=== PATIENT | male | born 1995 | race Asian ===

== ENCOUNTER 2019-06-13 17:54 | Inpatient (IN) | payer SELFPAY ==
[2019-06-13] MEDS ORDERED: Sodium Chloride 0.9% 1,000 ML IV SCH (19:30)
[2019-06-13] MEDS ORDERED: Potassium Chloride 20 MEQ TAB PO SCH (20:30)
[2019-06-13] MEDS ORDERED: Potassium Chloride 20 MEQ in Premix Bag 1 BAG IVPB SCH (20:45)
[2019-06-13] MEDS: NS 0.9% w/ 20 MEQ KCL 1,000 ML IV SCH (21:25)
--- NOTE | 2019-06-13 21:58 | PDOC.EVN ---
Event Note - Event Note Event Note: H&P [id number]
[2019-06-13] MEDS: Ibuprofen 200 MG TAB PO PRN (22:22)
[2019-06-13] MEDS: Ondansetron PF 4 MG/2 ML Vial IVP PRN (22:23)
[2019-06-13 22:55] LABS: HBCM Index 0.07 S/CO (0-0.79); HBSAg Index 0.17 S/CO (0-0.99); Hep A IgM AB Non-Reactive (NonReactive); Hep B Surf Ag Non-Reactive S/CO (NonReactive); Hep C IgG Ab Non-Reactive (NonReactive); Hep C Index 0.07 S/CO (0-0.79); Hepatitis B Core IgM Abs Non-Reactive (NonReactive)
--- NOTE | 2019-06-14 03:50 | HP ---
CHIEF COMPLAINT: Fever. HISTORY OF PRESENT ILLNESS: Mr. Low is a 23-year-old male with no significant past medical history, presents to outside emergency room with fever for the last week. The patient recently traveled to [facility] and came two weeks ago. According to him, his roommates started having fever, body aches, and upper respiratory tract infection symptoms, all of them improved. After a day or two later, he started having fever as high as 102/103. Workup in the emergency room, the patient was found to have elevated LFTs with ALT 830, AST 766, GGT 166. Also, he was found to be hypokalemic with a potassium of 2.8, hyponatremic with a sodium of 128, the patient appeared to be dehydrated. PAST MEDICAL HISTORY: No significant past medical history. PAST SURGICAL HISTORY: Hernia repair. FAMILY HISTORY: Reviewed and noncontributory. SOCIAL HISTORY: As history of present illness, his roommates got fever and sick before he started feeling sick. He denies smoking, alcohol drinking, or drug abuse. HOME MEDICATIONS: Please see home medication reconciliation form for updated medications. ALLERGIES: NO KNOWN ALLERGIES. REVIEW OF SYSTEMS: Review of 14 systems is negative except what is mentioned in the history of present illness. PHYSICAL EXAMINATION: GENERAL: The patient is awake, alert, sick/ill-looking. HEAD AND NECK: Normocephalic, atraumatic. Mucous membranes dry. HEART: S1, S2. Regular tachycardic. ABDOMEN: Soft, nontender. Bowel sounds present. NEUROLOGIC: Awake, alert, oriented x3. PSYCH: Normal mood. EXTREMITIES: No clubbing or cyanosis. SKIN: No rash. VITAL SIGNS: Blood pressure is 130/80, heart rate is 110, respiratory rate is 16, temperature 102.3. LABORATORY DATA: Labs as mentioned above in the history of present illness. Sodium 128, potassium 2.8. WBC is 4.1, ALT 830, AST 766, GGT 166. IMAGING STUDIES: The patient had imaging studies including CT of the abdomen in the outside facility. No acute findings. Chest x-ray, no acute finding. ASSESSMENT: 1. Fever of unknown origin. 2. Transaminitis, suspected viral illness. 3. Dehydration. 4. Hypokalemia. 5. Hyponatremia. PLAN: 1. Admit. 2. Replace potassium. 3. IV fluid hydration. 4. Acute hepatitis panel. 5. Consult GI for evaluation and further recommendations. 6. Consult Infectious Disease for evaluation and further recommendations. 7. Reconcile home medications. 8. DVT prophylaxis, early ambulation. 9. Expected length of stay two midnights or more. Job ID: [id number]
[2019-06-14] MEDS: NS 0.9% w/ 20 MEQ KCL 1,000 ML IV SCH ×4 (05:20→23:04)
[2019-06-14] MEDS: Ibuprofen 200 MG TAB PO PRN (06:07)
[2019-06-14 06:14] LABS: ALT (SGPT) 855 U/L (8-55); AST (SGOT) 591 U/L (5-34); Albumin 3.6 g/dL (3.5-5.0); Alkaline Phosphatase 37 U/L (40-150); Anion Gap 15 mmol/L (10-20); BUN (Urea Nitrogen) Less than 4 mg/dL (8.9-20.6); Bilirubin, Total 1.2 mg/dL (0.2-1.2); Calc. Creatinine Clearance 130 mL/min (70-130); Calcium 8.4 mg/dL (7.8-10.44); Carbon Dioxide 20 mmol/L (22-29); Chloride 103 mmol/L (98-107); Estimated GFR-MDRD Greater than 90; Globulin 2.9 g/dL (2.4-3.5); Glucose 102 mg/dL (70-105); Potassium 3.9 mmol/L (3.5-5.1); Protein, Total 6.5 g/dL (6.0-8.3); Sodium 134 mmol/L (136-145)
[2019-06-14 06:58] LABS: Band 11 % (5-11); Hemoglobin 14.7 g/dL (14.0-18.0); Lymphocytes 26 % (21-51); MDiff Complete? YES; Mean Corpuscular HGB CONC 34.4 g/dL (32.0-36.0); Mean Corpuscular Hemoglobin 28.6 pg (27.0-31.0); Mean Corpuscular Volume 83.2 fL (78.0-98.0); Mean Platelet Volume 8.4 fL (7.4-10.4); Monocytes 23 % (0-10); Neutrophil 40 % (42-75); Platelet Count 143 thou/uL (130-400); RBC Distribution Width 11.9 % (11.5-14.5); Red Blood Cell (RBC) Count 5.14 mill/uL (4.70-6.10); White Blood Cell (WBC) Count 6.6 thou/uL (4.8-10.8)
[2019-06-14] MEDS: Ondansetron PF 4 MG/2 ML Vial IVP PRN (10:48)
[2019-06-14 13:13] LABS: MONO NEGATIVE CONTROL ZONE White (Negative) (White); MONO POSITIVE CONTROL Pink Line (Positive) (PINK/RED); Mononucleosis NEGATIVE (NEGATIVE)
--- NOTE | 2019-06-14 13:14 | PRG ---
DATE OF SERVICE: 06/14/2019 SUBJECTIVE: The patient is seen and examined at the bedside. He spiked fever again. He has some nausea and watery diarrhea. No blood in the stool. Some abdominal cramping in the epigastric area. OBJECTIVE: VITAL SIGNS: Blood pressure is 114/57, pulse is 94, temperature is 102.1, respiratory rate is 20, and O2 saturation is 97% on room air. HEENT: His head is atraumatic and normocephalic. Eyes are PERRLA. Sclerae are nonicteric. Oral mucosa is dry. NECK: Supple. LUNGS: Clear. HEART: S1, S2 normal. No S3. No S4. ABDOMEN: Soft, slightly tender in the epigastric area. No masses. Bowel sounds are present. EXTREMITIES: No clubbing, cyanosis, or edema. NEUROLOGIC: He is following my commands. He moves his all 4 extremities. There are no any motor deficits. LABORATORY DATA: Showed normal CBC except for neutrophils which is 40% and monocytes 23. Sodium 134, potassium 3.9, chloride 103, CO2 of 20, BUN less than 4, creatinine 0.75, AST 591, ALT 855, alkaline phosphatase 37, total bilirubin 1.2, and the rest of chemistry within normal limits. Hepatitis A, B, and C antibodies and antigen negative for acute hepatitis panel. Microbiology C. difficile on stool came back negative. IMPRESSION: Febrile illness unclear etiology. We will check his stool for Campylobacter and E. coli. We will check him for mono since the mono sites are elevated, although he does not have any lymphadenopathy. We will replace his potassium and we will rehydrate him. I talked to Dr. Dixon personally about his case. He is going to come and see him this evening since he is out of town today. We will increase his ibuprofen dose to 800 mg every 8 hours p.r.n. as needed and we will check his CRP. Job ID: [id number]
[2019-06-14 13:15] VITALS: BMI 18.8
[2019-06-14] MEDS: Ibuprofen 800 MG TAB PO PRN ×2 (14:18→23:04)
--- NOTE | 2019-06-14 21:59 | CON ---
DATE OF CONSULTATION: 06/14/2019 CHIEF COMPLAINT: Fever and now diarrhea. HISTORY OF PRESENT ILLNESS: Mr. Low is a 23-year-old man, who came to the [facility] 3 weeks ago after traveling to [place] for the summer. One week ago this past Sunday, he developed fever with chills and sweats. A couple of days later, he went to the emergency room as he was having some nausea with that as well, and he was prescribed Tylenol and medicine for the nausea. He continued having fevers and he went back to the emergency room and was admitted, then transferred to [place] for further care. While he was at [facility] ER yesterday, he had a CT scan of his chest, abdomen and pelvis performed, which were negative. The liver tests were noted to be elevated. Here in the hospital, he had a hepatitis serology for A, B and C acute panel that were negative and a mono screen was negative. He has had no abdominal pain. He reports liquidy brown stools 3 times per day starting around Sunday of this week. He has had no blood in the stool. He has had no cough or upper respiratory symptoms. His roommate and a friend also had fevers that started just before his fevers; however, their symptoms only lasted for 2 or 3 days, and they had more upper respiratory symptoms with their fever. PAST MEDICAL HISTORY: Depression. PAST SURGICAL HISTORY: Inguinal hernia repair. FAMILY HISTORY: Negative for liver disease or GI malignancy. SOCIAL HISTORY: He drinks around 5 drinks once per week, that is of alcohol. He smokes previously a pack per day, but now he is down to three or four cigarettes per day. No drugs. ALLERGIES: NO KNOWN DRUG ALLERGIES. MEDICATIONS: Prior to admission, Tylenol and Lexapro. REVIEW OF SYSTEMS: Negative x10 systems reviewed, except as stated in the history of present illness. PHYSICAL EXAMINATION: VITAL SIGNS: Temperature this afternoon was 102 degrees. Current temperature 98.8, pulse 65, blood pressure 121/65. GENERAL: He is in no acute distress. Alert and oriented x3. HEENT: Eyes have no scleral icterus. Oropharynx is clear without lesions. NECK: No cervical or supraclavicular lymphadenopathy. LUNGS: Clear to auscultation bilaterally. HEART: Regular rate and rhythm without murmur. ABDOMEN: Soft, nontender, and nondistended. Bowel sounds are present. EXTREMITIES: No lower extremity edema. NEUROLOGIC: Cranial nerves are grossly intact. LABORATORY DATA: White blood cell count 6.6, hemoglobin 14.7, platelets 143. Creatinine is 0.75, bilirubin 1.2, AST 591, ALT 855, alkaline phosphatase 37, CRP 15.5, albumin 3.6. Hepatitis A IgM is negative. Hepatitis B surface antigen is negative. Hepatitis B core IgM is negative. Hepatitis C antibody is negative. [place] screen is negative. IMPRESSION: 1. Febrile illness. He has had fever now for a week. He continues to spike fever to 102 degrees this afternoon. He is having diarrhea with it now and did return from [place] 3 weeks ago. His friend and a roommate also had fever preceding his. This is all most consistent with an infectious source. 2. Abnormal liver function tests. This is a hepatocellular injury pattern with normal alkaline phosphatase and normal bilirubin. This could be secondary to any systemic infection; however, primary liver infection would also be considered. 3. Diarrhea. His Clostridium diff was negative. We will evaluate for other enteric infections. RECOMMENDATIONS: 1. Check hepatitis E IgM. 2. Check stool for culture and ova and parasite and lactoferrin. 3. We will check labs for CMV, HSV, and EBV. 4. Dr. Dixon also has also been consulted and will evaluate the patient along the way. Job ID: [id number]
[2019-06-15] MEDS: Ibuprofen 800 MG TAB PO PRN ×2 (07:37→15:09)
[2019-06-15] MEDS: Ondansetron PF 4 MG/2 ML Vial IVP PRN ×2 (08:02→15:09)
[2019-06-15] MEDS: NS 0.9% w/ 20 MEQ KCL 1,000 ML IV SCH (09:57)
[2019-06-15 12:25] LABS: Band 3 % (5-11); Hemoglobin 13.6 g/dL (14.0-18.0); Lymphocytes 46 % (21-51); MDiff Complete? YES; Mean Corpuscular HGB CONC 34.7 g/dL (32.0-36.0); Mean Corpuscular Hemoglobin 29.9 pg (27.0-31.0); Mean Corpuscular Volume 86.2 fL (78.0-98.0); Mean Platelet Volume 7.5 fL (7.4-10.4); Monocytes 5 % (0-10); Neutrophil 45 % (42-75); Platelet Count 174 thou/uL (130-400); RBC Distribution Width 12.2 % (11.5-14.5); Red Blood Cell (RBC) Count 4.56 mill/uL (4.70-6.10); White Blood Cell (WBC) Count 4.2 thou/uL (4.8-10.8)
[2019-06-15 12:32] LABS: ALT (SGPT) 594 U/L (8-55); AST (SGOT) 257 U/L (5-34); Albumin 3.1 g/dL (3.5-5.0); Alkaline Phosphatase 68 U/L (40-150); Anion Gap 9 mmol/L (10-20); BUN (Urea Nitrogen) 6 mg/dL (8.9-20.6); Bilirubin, Total 0.8 mg/dL (0.2-1.2); Calc. Creatinine Clearance 154 mL/min (70-130); Calcium 8.2 mg/dL (7.8-10.44); Carbon Dioxide 27 mmol/L (22-29); Chloride 105 mmol/L (98-107); Estimated GFR-MDRD Greater than 90; Globulin 2.5 g/dL (2.4-3.5); Glucose 105 mg/dL (70-105); Potassium 3.8 mmol/L (3.5-5.1); Protein, Total 5.6 g/dL (6.0-8.3); Sodium 137 mmol/L (136-145)
[2019-06-15 14:04] LABS: Ref Lab Test Ordered HEP E IgM; Reference Lab Name LABCORP
--- NOTE | 2019-06-15 14:54 | PRG ---
DATE OF SERVICE: 06/15/2019 SUBJECTIVE: Mr. Low feels better today. He has had no further fever since yesterday afternoon. He had one formed stool today and this was sent off for stool samples as previously ordered. PHYSICAL EXAMINATION: VITAL SIGNS: Temperature 98.5, pulse 70, blood pressure 111/65. GENERAL: He is in no acute distress. Alert and oriented x3. HEENT: Eyes have no scleral icterus. LUNGS: Clear to auscultation bilaterally. HEART: Regular rate and rhythm without murmur. ABDOMEN: Soft, nontender, nondistended. Bowel sounds are present. EXTREMITIES: No lower extremity edema. LABORATORY DATA: White blood cell count 4.2, hemoglobin 13.6, platelets 174. Creatinine 0.75. Bilirubin 1.2, AST 591, ALT 855, alkaline phosphatase 37 yesterday. Today, the bilirubin 0.8, AST 257, ALT 594, and alkaline phosphatase 68. IMPRESSION: 1. Febrile illness, likely viral. Additional stool studies have been sent due to diarrhea. However, his stool is more formed today. 2. Abnormal liver function tests. His liver tests are much improved today. This is likely secondary to the infectious viral illnesses suspected as noted above. RECOMMENDATIONS: 1. Multiple labs have been sent to look for infectious process, might also cause elevated liver tests. 2. Dr. Dixon has also evaluated the patient and sent some additional labs for evaluation of the fever. 3. From a liver standpoint, things are doing better and he can follow up in the office. I will defer further inpatient management to the primary service and Dr. Dixon. We will continue to await the labs that we have requested. I will sign off for now. Please call if GI can be of assistance. Job ID: [id number]
[2019-06-15 15:15] LABS: HIV (1/2) Antibody/Antigen Non-Reactive (NonReactive); HIV 1/2 INDEX 0.08 S/CO (<1.00); Syphilis Antibody Nonreactive (Nonreactive); Syphilis Antibody Index 0.09 S/CO (<1.00 Non-Reactive)
[2019-06-15 15:51] VITALS: BP 117/62; TEMP 99.5
--- NOTE | 2019-06-15 16:46 | DIS ---
DATE OF ADMISSION: 06/13/2019 DATE OF DISCHARGE: 06/15/2019 CONSULTANTS: 1. Dr. Mk Courtney, Gastrointestinal Service. 2. Dr. Paul Dixon, Infectious Disease Service. HOSPITAL COURSE: The patient is a 23-year-old male with no significant past medical history, who presented to outside emergency room with fever for the last week or so. He recently traveled to [facility] and came approximately 3 weeks ago back and apparently his roommate started having some fever, body aches and upper respiratory tract infection x1 day, and then he got sick and his temperature was up to 102. He came to the emergency room, he was found to have elevated LFTs with ALT of 830, AST is 766, and GGT 166. He was hypokalemic with potassium of 2.8, hyponatremic with sodium of 128, and he was dehydrated. Apparently the last few days, he started having some nausea, abdominal pain, and diarrhea. He [facility], which was basically negative except for above-mentioned problems with sodium of 128 and potassium 2.8. His white count was 4.1 and above mentioned elevated liver function tests. He had CT angiogram of the chest done, which did not show any PE or any other abnormalities. Also, he had CT of the abdomen and pelvis done with oral and IV contrast, which came back basically negative. He was admitted to the hospital for further diagnostic workup and management. He received IV fluids and his potassium was replaced. Acute hepatitis panel came back negative. GI was consulted and Infectious Disease specialists were consulted. His temperature went up to 103.2, highest but he did not have any fever any more for the last 24 hours. LABORATORY DATA: His lab work showed white count down to 4.2 today, hemoglobin 13.6 and hematocrit 39.3. His mono test came back negative. His C-reactive protein was 15.59, procalcitonin 6.05. His AST is down to 257 and ALT is down to 594 with normal alkaline phosphatase. His kidney function is normal. He is able to eat, and his diarrhea is not there anymore. He had additional workup done, which is sent out, although part of it is back. C difficile toxin and antigen on his stool came back negative. Also, there was absence of elevated fecal lactoferrin and Campylobacter and Escherichia coli shiga toxin 1 and 2 came back negative. The patient is doing well. His blood pressure is 111/65, pulse is 70, respirations 18, temperature is 98.5, and his pulse oximetry is 100% on room air. He is seen and examined before his discharge. Dr. Dixon saw him today and he thinks this was a viral infection, most likely we are still awaiting for an official consult to be posted, but this case was discussed personally with him and he is good to discharge him home on p.r.n. ibuprofen and follow up with him in 2 weeks. He is going to stay on regular diet and activities as tolerated. Job ID: [id number]
--- NOTE | 2019-06-15 17:25 | CON ---
DATE OF CONSULTATION: 06/15/2019 REASON FOR CONSULTATION: Fever. HISTORY OF PRESENT ILLNESS: A 23-year-old patient with no past medical history , who spent 3 months in [place] in his family's [place] [facility]. He was healthy throughout his stay there and came back to [place] about 3 weeks ago, and about 1 week prior to admission, developed febrile illness. He lives with roommates in a house here in [place]. He is an under grad at [employer] and , and apparently, roommates also developed illness, which had febrile episodes associated with respiratory symptoms including cough. His temperature went up to 103 and eventually ended up admitted. He had abnormal liver function tests and a number of assays have been submitted. Currently, feeling better. He denies any headaches. No sore throat, odynophagia, or dysphagia. No dental pain. No neck pain. No cough, sputum production, or chest pain. No dyspnea. No abdominal pain or diarrhea. No genitourinary symptoms. No joint symptoms. PAST MEDICAL HISTORY: Negative. PAST SURGICAL HISTORY: Hernia repair. FAMILY HISTORY: Noncontributory. SOCIAL HISTORY: Originally from [facility]. Never smoker. He is not sexually active. No drug use. No exposure to camel's medications. Currently, just p.r.n. medications and electrolyte infusions. PHYSICAL EXAMINATION: VITAL SIGNS: T-max 103. He has been defervescing since admission. Other vital signs are normal. O2 sats are normal. SKIN: Normal. LYMPH: No lymphadenopathy. HEENT: Oral cavity normal. Eye exam normal. Ocular movements are conjugate. Nasal passages are patent. Ears exam normal. NECK: Supple. No jugular vein distention. LUNGS: Clear breath sounds. HEART: S1, S2 regular rate. No S3 or S4. No murmurs. ABDOMEN: Soft. Not distended or tender. No ascites. No bladder distention. : No genital abnormalities. BACK: No back tenderness. EXTREMITIES: No joint inflammatory activity. NEURO: Nonfocal including cognitive function. LABORATORY DATA: White cell count 6.6 and 4.2, hemoglobin 14, platelets 143 with 40% neutrophils. Sodium 134, creatinine normal, AST was 591 and now 257, ALT was 855 and now 594, bilirubin normal, alkaline phosphatase within normal limits, CRP 15. Albumin 3.6 and 3.1. Hepatitis serology negative. [place] screen negative. IMAGING DATA: I do not have any imaging studies done. ASSESSMENT: Otherwise healthy young man, who is originally from [facility] and has developed febrile illness, nonspecific, similar illness with the roommate except for the additional respiratory symptoms. No neutrophilia noted in the differential. A little bit of monocytosis. DISCUSSION: Differential diagnoses include viral infections including usual respiratory viruses including adenovirus, coronavirus, metapneumovirus, and so on. EBV is not completely ruled out and CMV is a possibility. Submit EBV panel. CMV panel was already submitted and respiratory virus PCR panel. Consider discharge planning and follow up in the outpatient setting. We will check HIV serology as well and RPR. Job ID: [id number] [facility]
== END 2019-06-15 16:20 | disposition home or self-care (01) | DRG 866 ==
LOC: EDSEX 17:54 → 2NO 17:54
PROVIDERS: ADMIT Internal Medicine; ATTEND Internal Medicine
DX: B34.9 Viral infection, unspecified (principal); E87.1 Hypo-osmolality and hyponatremia; E87.6 Hypokalemia; E86.0 Dehydration; R74.0 Nonspecific elevation of levels of transaminase and lactic acid dehydrogenase [LDH]; F32.9 Major depressive disorder, single episode, unspecified
CPT/HCPCS: 36415; 80053; 80074; 83605; 83630; 84145; 85007; 85025; 85027; 86140; 86308; 86644; 86645; 86780; 87045; 87046; 87177; 87324; 87389; 87427; 87449; 87529; 87633; J2405; J3480; J3490